=== PATIENT | male | born 1930 | race Caucasian/White ===

== ENCOUNTER 2019-02-03 00:06 | Day surgery (SDC) | payer MEDICARE, OTHER ==
[~2019-02-03 00:06] MED LIST: ACET325 PO; ACYC200 PO; ALBU90OI INH; ARTTEAOPSB OP; ASPI81CH PO; ASPI81EC PO; ATOR10 PO; ATOR20 PO; CHOL10002 PO; CYCL10 PO; LEVSOD50 PO; LOSA50 PO; METO25ER PO; METPRE4DP PO; Metoprolol Succ25 MG PO; NAPR500 PO; Nitroglycerin0.4 MG SL; OPTLUBOPOA OS; POTCHL10ER PO; PRED20 PO; TAMS.4ER PO; Tamiflu75 MG PO; [UNRECOGNIZED DRUG - REMARK]
[2019-02-03] MEDS ORDERED: LOSA50 PO (10:06)
[2019-02-03] MEDS ORDERED: TRIAMTERENE-HCTZ PO (10:09)
[2019-02-03] MEDS ORDERED: CHOL10002 PO (10:10)
[2019-02-03] MEDS ORDERED: DOCU100 PO (10:10)
[2019-02-03] MEDS ORDERED: THERA1 EACH PO (10:10)
[2019-02-03] MEDS ORDERED: NITR.4SL SL (10:11)
[2019-02-03] MEDS ORDERED: COENZYME Q-1030 MG PO (10:12)
== END 2019-02-03 10:30 | disposition home or self-care (01) ==
LOC: ATC 00:06
DX: N32.0 Bladder-neck obstruction (principal); I10 Essential (primary) hypertension; E78.5 Hyperlipidemia, unspecified; E03.9 Hypothyroidism, unspecified; Z87.891 Personal history of nicotine dependence; Z79.899 Other long term (current) drug therapy; Z79.82 Long term (current) use of aspirin
CPT/HCPCS: 51798